=== PATIENT | male | born 1940 | race Caucasian/White ===

== ENCOUNTER 2016-05-19 07:47 | Outpatient (CLI) ==
[2015-11-29 10:42] VITALS: BMI 30.4
--- NOTE | 2016-05-19 08:42 | US ---
EXAM: ULTRASOUND AORTA HISTORY: Abdominal aortic aneurysm FINDINGS: Ultrasound aorta. Real time willingham-scale, color Doppler imaging and spectral analysis perf ormed. The AP and transverse measurements respectively, in centimeters are as follows: Proximal: 1.8 x 1.7 Mid: 2.8 x 2.6 Distal: 3.2 x 3.0 Right iliac: 1.2 x 1.3 Left iliac: 1.3 x 1.5 IMPRESSION: Sonographic evidence of aneurysmal caliber of the distal/infrarenal aorta measuring up to 3.2 cm. When compared to prior study dated 11/29/2015, findings appear grossly stable.
== END 2016-05-19 07:48 | disposition home or self-care (01) ==
LOC: RAD 07:47
PROVIDERS: ATTEND Emergency Medicine
DX: I71.4 Abdominal aortic aneurysm, without rupture (principal)
CPT/HCPCS: 76775

== ENCOUNTER 2016-12-08 10:35 | Outpatient (CLI) | payer OTHER ==
[2015-11-29 10:42] VITALS: BMI 30.4
[2016-12-08 11:23] LABS: ALBUMIN 3.6 g/dL (3.4-5.0); ANION GAP 19.4; BILIRUBIN,TOTAL 0.65 mg/dL (0.00-1.20); BUN/CREATININE RATIO 14.49; CALCIUM 10.3 mg/dL (8.2-10.2); CREATININE 2.76 mg/dL (0.60-1.10); PHOSPHORUS 3.3 mg/dL (2.3-3.7); POTASSIUM 5.4 mmol/L (3.5-5.1); TOTAL PROTEIN 7.2 g/dL (5.8-8.1)
== END 2016-12-08 10:36 | disposition home or self-care (01) ==
LOC: LAB 10:35
PROVIDERS: ATTEND Internal Medicine
DX: R94.4 Abnormal results of kidney function studies (principal)
CPT/HCPCS: 36415; 80053; 83970; 84100

== ENCOUNTER 2016-12-21 12:49 | Outpatient (CLI) ==
[2015-11-29 10:42] VITALS: BMI 30.4
[2016-12-21 13:13] LABS: BASOPHILS % (AUTO) 0.5 % (0.0-3.0); EOSINOPHILS # (AUTO) 0.1 K/ul (0.0-0.7); EOSINOPHILS % (AUTO) 1.6 % (0.0-7.0); HEMATOCRIT 41.7 % (42.0-52.0); HEMOGLOBIN 14.1 g/dl (14.0-18.0); IMMATURE GRANULOCYTE % (AUTO) 0.4 % (0.0-5.0); LYMPHOCYTES # (AUTO) 1.9 K/uL (0.60-3.4); LYMPHOCYTES % (AUTO) 22.4 (10.0-50.0); MEAN CORPUSCULAR HEMOGLOBIN 30.8 pg (27.0-31.0); MEAN CORPUSCULAR HGB CONC 33.8 (31.8-35.4); MONOCYTES # (AUTO) 0.5 K/uL (0.4-2.0); MONOCYTES % (AUTO) 6.4 (0-10); NEUTROPHILS # (AUTO) 5.7 K/ul (2.0-6.9); NEUTROPHILS % (AUTO) 68.7; PLATELET COUNT 178 10^3/uL (140-440); RED BLOOD COUNT 4.58 10^6/ul (4.70-6.10); WHITE BLOOD COUNT 8.29 K/ul (4.2-10.2)
[2016-12-21 13:18] LABS: BILIRUBIN,URINE Negative (NEGATIVE); KETONES,URINE Negative (NEGATIVE); LEUKOCYTE ESTERASE ,URINE Trace (NEGATIVE); NITRITE,URINE Negative (NEGATIVE); PH,URINE 5.5 (5-9); PROTEIN,URINE Negative (NEGATIVE); URINE, BLOOD Negative (NEGATIVE)
[2016-12-21 13:25] LABS: ABG BASE EXCESS -4 (-2.0-2.0); ABG HCO3 21.5 (22.0-26.0); ABG PCO2 37.1 mmHg (35-45); ABG TCO2 23 (22.0-28.0)
[2016-12-21 13:32] LABS: ADD URINE MICROSCOPIC YES; ALBUMIN 3.7 g/dL (3.4-5.0); ALBUMIN/GLOBULIN RATIO 0.95; ANION GAP 14.4; BILIRUBIN,TOTAL 0.53 mg/dL (0.00-1.20); BUN/CREATININE RATIO 15.21; CALCIUM 10.5 mg/dL (8.2-10.2); CREATININE 2.76 mg/dL (0.60-1.10); POTASSIUM 5.4 mmol/L (3.5-5.1); TOTAL PROTEIN 7.6 g/dL (5.8-8.1)
[2016-12-21 13:33] LABS: BACTERIA,URINE TRACE (NOT PRESENT)
== END 2016-12-21 12:50 | disposition home or self-care (01) ==
LOC: LAB 12:49
PROVIDERS: ATTEND Internal Medicine
DX: N17.9 Acute kidney failure, unspecified (principal); E78.5 Hyperlipidemia, unspecified; R30.0 Dysuria
CPT/HCPCS: 36415; 80053; 81001; 82803; 83970; 85025

== ENCOUNTER 2016-12-22 06:35 | Outpatient (CLI) ==
[2015-11-29 10:42] VITALS: BMI 30.4
--- NOTE | 2016-12-22 08:13 | US ---
EXAM: Ultrasound retroperitoneal complete. HISTORY: Chronic renal failure. COMPARISON: 06/30/2013. TECHNIQUE: Multiple [place]ham scale and color Doppler images. FINDINGS: Right kidney measures 10.6 x 4.2 x 4.1 cm. The left kidney measures 11.8 x 4.4 x 4.4 cm. Simple cysts are present in both kidneys measuring up to 2.8 cm maximum diameter on the left and 1.8 cm on the right. No echogenic shadowing stones are seen. Cortical echogenicity is normal. There i s no hydronephrosis. Urinary bladder is unremarkable. Prostate is prominent. Since prior study, there has been no significant interval change. IMPRESSION: No acute sonographic abnormality of the kidneys or bladder.
== END 2016-12-22 06:36 | disposition home or self-care (01) ==
LOC: RAD 06:35
PROVIDERS: ATTEND Internal Medicine
DX: N18.9 Chronic kidney disease, unspecified (principal)
CPT/HCPCS: 76770

== ENCOUNTER 2017-01-27 09:29 | Outpatient (CLI) ==
[2015-11-29 10:42] VITALS: BMI 30.4
[2017-01-27 09:49] LABS: HEMATOCRIT 38.6 % (42.0-52.0); HEMOGLOBIN 13.1 g/dl (14.0-18.0); MEAN CORPUSCULAR HEMOGLOBIN 30.3 pg (27.0-31.0); MEAN CORPUSCULAR HGB CONC 33.9 (31.8-35.4); MEAN CORPUSCULAR VOLUME 89.4 fl (80.0-94.0); RED BLOOD COUNT 4.32 10^6/ul (4.70-6.10); WHITE BLOOD COUNT 7.04 K/ul (4.2-10.2)
[2017-01-27 10:07] LABS: ANION GAP 13.8; BUN/CREATININE RATIO 16.03; CALCIUM 9.7 mg/dL (8.2-10.2); CREATININE 2.37 mg/dL (0.60-1.10); POTASSIUM 4.8 mmol/L (3.5-5.1)
[2017-01-28 08:39] LABS: URINE CREATININE 108.4 mg/dL (Not Estab.); URINE MALB/CR RATIO 5.1 mg/g creat (0.0-30.0)
== END 2017-01-27 09:30 | disposition home or self-care (01) ==
LOC: LAB 09:29
PROVIDERS: ATTEND Internal Medicine Nephrology
DX: N18.4 Chronic kidney disease, stage 4 (severe) (principal)
CPT/HCPCS: 36415; 80048; 82043; 85027

== ENCOUNTER 2017-01-28 00:43 | Emergency (ER) ==
[2017-01-28 00:57] VITALS: BP 143/78; TEMP 97.9; BMI 30.1
[2017-01-28] MEDS ORDERED: NORCO 5-325 PO STA (01:06)
--- NOTE | 2017-01-28 01:10 | ED.PDOC ---
General ED Provider: Dr. JOSIANE PIERRE Chief Complaint: Multiple Trauma Stated Complaint: Fell at home while sleeping, injured nose and left shoulder and left ankle. was sitting and watching TV, slept while watching TV and fell down and injured nose. Time Seen by Physician: 01:08 Mode of Arrival: Walk-In Information Source: Patient Primary Care Provider: JAY MUSE Nursing and Triage Documentation Reviewed and Agree: Yes Reviewed sepsis parameters & appropriate labs ordered?: Yes System Inflammatory Response Syndrome: Not Applicable Sepsis Protocol: For patient's 13 years and over: Temp is 96.8 and below OR 101 and greater Pulse >90 BPM Resp >20/minute Acutely Altered Mental Status Are patient's symptoms suggestive of a new infection, such as: -Pneumonia -Skin, Soft Tissue -Endocarditis -UTI -Bone, Joint Infection -Implantable Device -Acute Abdominal Infection -Wound Infection -Meningitis -Blood Stream Catheter Infection -Unknown Trauma/Injury Complaint Exam - Facial Injury Complaint/Exam Location of Pain: Reports: Nose (left shoulder, left ankle) Mechanism of Injury: Reports: Trauma Symptoms Are: Still present Onset of Pain: Reports: Immediate Initial Severity: Moderate Current Severity: Moderate Location: Reports: Diffuse Character: Reports: Aching, Throbbing Alleviating: Reports: None Aggravating: Reports: Movement Associated Signs and Symptoms: Reports: Swelling, Redness. Denies: Bruising, Numbness, Tingling, Fever, Polymyalgia, Weight loss, Visual defects, Tinnitus, Headache, Loss of consciousness Related Surgical History: Reports: None Differential Diagnoses: Abrasion, Fracture, Other Review of Systems - Review Of Systems Constitutional: Reports: Malaise, Weakness Eyes: Reports: No symptoms Ears, Nose, Mouth, Throat: Reports: No symptoms Respiratory: Reports: No symptoms Cardiac: Reports: No symptoms GI: Reports: No symptoms : Reports: No symptoms Musculoskeletal: Reports: No symptoms Skin: Reports: No symptoms Neurological: Reports: No symptoms Endocrine: Reports: No symptoms Hematologic/Lymphatic: Reports: No symptoms All Other Systems: Reviewed and Negative Past Medical History - Past Medical History Previously Healthy: Yes Endocrine: Reports: Dyslipidemia Cardiovascular: Reports: Hypertension Respiratory: Reports: None Hematological: Reports: None Gastrointestinal: Reports: None Genitourinary: Reports: None Neuro/Psych: Reports: Dementia Musculoskeletal: Reports: Arthritis, Joint Pain Cancer: Reports: None - Surgical History General Surgical History: Reports: None - Family History Family History: Reports: None - Social History Smoking Status: Former smoker Hx Substance Use: Yes (20 years ago Marijuana use) Alcohol Screening: None - Immunizations Tetanus Shot up to Date: (UNKNOWN) Physical Exam - Physical Exam Appearance: Well-appearing, No pain distress, Well-nourished Eyes: EOMI, Conjunctiva clear ENT: Ears normal, Nose normal, Oropharynx normal Respiratory: Airway patent, Breath sounds clear, Breath sounds equal, Respirations nonlabored Cardiovascular: RRR, Pulses normal, No rub, No murmur GI/: Soft, Nontender, No masses, Bowel sounds normal, No Organomegaly Musculoskeletal: No calf tenderness, Limited ROM (left ankle), Limited strength , Edema Skin: Warm, Dry, Normal color Neurological: Sensation intact, Motor intact, Reflexes intact, Cranial nerves intact, Alert, Oriented Psychiatric: Affect appropriate, Mood appropriate Interpretation - Radiology Interpretation Radiology Interpretation By: ED Physician Radiology Results: Negative Critical Care Note - Critical Care Note Total Time (mins): 15 Course - Course Orders, Labs, Meds: Orders Category Date Time Status Hydrocodone Bit/Acetaminophen [[place] 5-325] MEDS 01/28/17 01:06 Discontinued 1 tab PO ONCE STA ANKLE, LEFT MIN 3 VIEWS Stat RADS 01/28/17 01:[address] HEAD W/O CONTRAST Stat RADS 01/28/17 01:[address] MAXILLOFACIAL W/O CONTRAST Stat RADS 01/28/17 01:06 Taken SHOULDER, LEFT MIN 2V Stat RADS 01/28/17 01:06 Taken Medications Discontinued Medications Generic Name Dose Route Start Last Admin Trade Name Freq PRN Reason Stop Dose Admin Acetaminophen/Hydrocodone Bitart 1 tab 01/28/17 01:06 [place] 5-325 PO 01/28/17 01:07 ONCE STA Vital Signs: Temp Pulse Resp BP Pulse Ox 01/28/17 00:44 97.9 F 70 20 143/78 H 95 Departure - Departure Time of Disposition: 01:45 Disposition: HOME SELF-CARE Discharge Problem: Ankle sprain Qualifiers: Encounter type: initial encounter Involved ligament of ankle: unspecified ligament Laterality: left Qualified Code(s): S93.402A - Sprain of unspecified ligament of left ankle, initial encounter Instructions: Fall Prevention for Older Adults (GEN) Condition: Stable Pt referred to PMD for follow-up: Yes Additional Instructions: fall risk discussed safety discussed. Prescriptions: Hydrocodone/Acetaminophen [[place] 5-325 Tablet] 1 tab PO TID PRN #12 tablet PRN Reason: PAIN Allergies/Adverse Reactions: Allergies No Known Allergies Allergy (Verified 01/28/17 00:57) Home Medications: Ambulatory Orders Amlodipine Besylate [Norvasc] 10 mg PO DAILY 11/29/15 Aspirin [Adult Low Dose Aspirin EC] 81 mg PO DAILY 11/29/15 Calcium Carbonate/Vitamin D3 [Calcium 600-Vit D3 800 Tablet] 2 tab PO BID Carvedilol [Coreg] 6.25 mg PO BIDWM 11/29/15 Fenofibrate [Lofibra] 160 mg PO DAILY 11/29/15 Lisinopril [Zestril] 20 mg PO DAILY 11/29/15 Lovastatin [Mevacor] 20 mg PO BIDWM 11/29/15 Memantine HCl [Namenda Xr] 28 mg PO DAILY 11/29/15 Omega3/Dha/Epa/Fish Oil/Vit D3 [Fish Oil + Vitamin D-3 Softgel] 2 cap PO BID Ranitidine HCl [Heartburn Relief] 150 mg PO BID 11/29/15 Hydrocodone/Acetaminophen [[place] 5-325 Tablet] 1 tab PO TID PRN #12 tablet 01/28 Disposition Discussed With: Patient
--- NOTE | 2017-01-28 01:40 | CT ---
EXAM: CT head without contrast 01/28/2017. Sagittal and coronal reformatted images obtained HISTORY: Injury COMPARISON: 11/29/2015 FINDINGS: There is no evidence of intracranial hemorrhage. The midline is maintained. There is no h ydrocephalus. Diffuse generalized atrophy and chronic small vessel ischemic changes. Chronic small vessel ischemic changes. No cerebellar tonsillar ectopia. Evaluation of the calvarium shows no fracture. The mastoid air cells are normally pneumatized. IMPRESSION: No acute intracranial abnormality.
--- NOTE | 2017-01-28 01:47 | CT ---
EXAM: CT maxillofacial without intravenous contrast 01/28/2017. Sagittal and coronal reformatted im ages obtained HISTORY: Injury COMPARISON: 01/28/2017 FINDINGS: Subtle cortical irregularities at the anterior aspect of the nasal bones. This may repres ent acute minimally displaced fracture site. The remaining visualized facial bones appear intact. The orbits, zygoma, maxilla and mandible appear intact. The airway appears patent and within the midline. Bilateral lindy bullosa. IMPRESSION: 1. Subtle cortical irregularities of the anterior nasal bones could represent minimally-displaced fr acture site. Correlate with physical examination. 2. The remaining osseous structures of the facial bones appear intact. 3. Bilateral lindy bullosa.
--- NOTE | 2017-01-28 01:53 | DI ---
EXAM: Three views of the left ankle. HISTORY: Swelling. Pain. Diabetic. FINDINGS: The bones are intact with no evidence of fracture. The joint spaces are maintained. There is diffuse soft tissue swelling. Impression: Diffuse soft tissue swelling.
--- NOTE | 2017-01-28 01:54 | DI ---
EXAM: Left shoulder, three views, 01/28/2017 HISTORY: Injury with pain. Fall COMPARISON: 11/29/2015 FINDINGS / IMPRESSION: Left-sided pacer device is in place. 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 Prominent osteophyte formation at the acromiocl avicular joint. The osseous structures appear intact. There is no fracture or dislocation. No acute osseous abnormality.
== END 2017-01-28 01:55 | disposition home or self-care (01) ==
LOC: ED 00:43
DX: S93.402A Sprain of unspecified ligament of left ankle, initial encounter (principal); S09.92XA Unspecified injury of nose, initial encounter; S49.92XA Unspecified injury of left shoulder and upper arm, initial encounter; W19.XXXA Unspecified fall, initial encounter
CPT/HCPCS: 99282